=== PATIENT | male | born 1985 | race Caucasian/White ===

== ENCOUNTER 2017-10-31 02:00 | Observation (INO) | payer OTHER, SELFPAY ==
[~2017-10-31] VITALS: Ht 180.3 cm; Wt 80.0 kg
[2017-10-31] MEDS ORDERED: LORazepam 1MG TABLET ONE (02:42)
[2017-10-31] MEDS ORDERED: NICOTINE 21 MG/24 HR PATCH.TD24 ONE (02:45)
[2017-10-31] MEDS ORDERED: NICOTINE 21 MG/24 HR PATCH.TD24 TD ONE (03:00)
[2017-10-31] MEDS ORDERED: LORazepam 1MG TABLET PO ONE (03:00)
[2017-10-31 03:03] LABS: BASOPHILS # (AUTO) 0.02 x10^3/uL (0-0.1); BASOPHILS % (AUTO) 1 % (0-1); EOSINOPHILS # (AUTO) 0.14 x10^3/uL (0-0.4); EOSINOPHILS % (AUTO) 4 % (1-7); LYMPHOCYTES # (AUTO) 1.41 x10^3/uL (1-3.4); LYMPHOCYTES % (AUTO) 37 % (22-44); MD NO; MEAN CORPUSCULAR HEMOGLOBIN 32.1 pg (27.5-34.5); MEAN CORPUSCULAR HGB CONC 34.3 g/dL (33.2-36.2); MEAN CORPUSCULAR VOLUME 93.8 fL (81-97); MEAN PLATELET VOLUME 8.6 fL (7.4-10.4); MONOCYTES # (AUTO) 0.34 x10^3/uL (0.2-0.8); MONOCYTES % (AUTO) 9 % (2-9); NEUTROPHILS % (AUTO) 50 % (42-75); PLATELET COUNT 200 x10^3/uL (130-400); RED BLOOD COUNT 4.36 x10^6/uL (4.38-5.82); RED CELL DISTRIBUTION WIDTH 12.9 % (9.4-14.8)
[2017-10-31 03:09] LABS: AMPHETAMINE SCREEN, URINE Positive (Negative); BARBITURATE SCREEN, URINE Negative (Negative); BENZODIAZEPINE SCREEN, URINE Negative (Negative); CANNABINOID SCREEN, URINE Positive (Negative); COCAINE SCREEN, URINE Negative (Negative); METHADONE SCREEN, URINE Negative (Negative); OPIATE SCREEN, URINE Negative (Negative)
[2017-10-31 03:14] LABS: ALANINE AMINOTRANSFERASE 20 U/L (12-78); ALBUMIN 3.7 g/dL (3.4-5.0); ANION GAP 6 mmol/L (5-15); CALCIUM 7.7 mg/dL (8.5-10.1); CHLORIDE 110 mmol/L (98-107); CREATININE 0.82 mg/dL (0.7-1.3); SALICYLATE LEVEL 2.6 mg/dL (2.8-20.0)
[2017-10-31 03:17] LABS: ALKALINE PHOSPHATASE 86 U/L (45-117); BILIRUBIN,TOTAL 0.3 mg/dL (0.2-1.0); TOTAL PROTEIN 6.9 g/dL (6.4-8.2)
[2017-10-31 03:18] LABS: ACETAMINOPHEN < 2 mcg/mL (10-30)
[2017-10-31] MEDS ORDERED: ACETAMINOPHEN 325 MG TABLET PO PRN (06:00)
[2017-10-31] MEDS ORDERED: LORazepam 1MG TABLET PO PRN (06:00)
[2017-10-31] MEDS ORDERED: DOCUSATE 100 MG CAPSULE PO PRN (06:00)
[2017-10-31] MEDS ORDERED: ONDANSETRON ODT 4 MG PO PRN (06:00)
[2017-10-31] MEDS: NICOTINE 7 MG/24 HR PATCH.TD24 TD SCH (06:00)
[2017-10-31 06:25] VITALS: BP 119/79
[2017-10-31 07:21] LABS: FREE T4 (FREE THYROXINE) 1.1 ng/dL (0.76-1.46); THYROID STIMULATING HORMONE 0.932 mIU/L (0.358-3.740)
[2017-10-31 19:44] VITALS: BP 127/70
[2017-10-31 21:06] LABS: MICROSCOPIC NOT IND
[2017-10-31 21:12] LABS: CULTURE INDICATED? NO
[2017-11-01] MEDS: NICOTINE 7 MG/24 HR PATCH.TD24 TD SCH (08:47)
[2017-11-01 09:27] VITALS: BP 113/59
[2017-11-01 19:28] VITALS: BP 114/72
[2017-11-02 07:40] VITALS: BP 122/65
[2017-11-02] MEDS: NICOTINE 7 MG/24 HR PATCH.TD24 TD SCH (08:54)
[2017-11-02 19:20] VITALS: BP 118/65
[2017-11-03 08:44] VITALS: BP 124/68
[2017-11-03] MEDS: NICOTINE 7 MG/24 HR PATCH.TD24 TD SCH (09:00)
== END 2017-11-03 17:40 ==
LOC: ED 04:50 → EDIP 05:58 → 3E 06:17
PROVIDERS: ADMIT Internal Medicine; ATTEND Internal Medicine
DX: R45.851 Suicidal ideations (principal); F32.9 Major depressive disorder, single episode, unspecified; F12.10 Cannabis abuse, uncomplicated; F15.10 Other stimulant abuse, uncomplicated; F17.200 Nicotine dependence, unspecified, uncomplicated
CPT/HCPCS: 36415; 80053; 80307; 80329; 81003; 84439; 84443; 85025; 99285; G0378; G0480